=== PATIENT | male | born 1965 | race Caucasian/White ===

== ENCOUNTER → 2019-09-04 | Outpatient (CLI) | payer BC ==
--- NOTE | 2019-09-04 16:33 | US ---
EXAMINATION TYPE: US scrotum with doppler. Grayscale and color Doppler Duplex imaging performed of t leonardo scrotum. DATE OF EXAM: 09/04/2019 COMPARISON: NONE CLINICAL HISTORY: N50.819 Testicular pain. Right scrotal swelling and testicular tingling noted by luiz kaplan. EXAM MEASUREMENTS: TESTICLES: Right Testicle: 4.1 x 4.0 x 2.7 cm Left Testicle: 4.5 x 2.7 x 3.1 cm EPIDIDYMIS HEAD: Right Epididymis: 1.1 x 0.9 x 0.9 cm Left Epididymis: 1.0 x 0.9 x 1.4 cm Doppler was performed to assess for testicular vascularity; bilateral color flow and waveforms are se en. Right epididymis: couple of cysts noted with one located exophytic to head = 0.3 x 0.2 x 0.3cm; Righ t testicular cyst seen laterally = 0.3 x 0.3 x 0.3cm. Right testicular appendix imaged = 0.2 x 0.2 x 0.4cm. Mildly heterogeneous appearance to testicle noted bilaterally. Presence of hydroceles: large right hydrocele = 7.7 x 5.9 x 2.8cm; large complex left hydrocele = 4. 7 x 3.8 x 3.1cm. Presence of varicoceles: no IMPRESSION: Bilateral hydroceles. Color flow is noted to both testes. Small cystic focus within the r ight testis, follow-up suggested. Consider urology consult.
== END | disposition home or self-care (01) ==
LOC: RADUSWWP 15:40
PROVIDERS: ATTEND Family Medicine
DX: N43.3 Hydrocele, unspecified (principal); N44.2 Benign cyst of testis
CPT/HCPCS: 76870; 93975